=== PATIENT | female | born 1955 | race Caucasian/White ===

== ENCOUNTER 2016-06-19 13:06 | Emergency (ER) | payer OTHER ==
[~2016-06-19 13:06] MED LIST: BUTALBITAL PO; DIFLUCAN; DIFLUCAN PO; FLAGYL250 M1 PO; GABAPENTIN800 MG PO; INDERAL LA PO; KLONOPIN PO; LAMICTAL PO; LEVAQUIN PO; NEURONTIN PO; PREDNISONE10 MG PO; PRIMIDONE250 MG PO; SYMBICORT INH; TOPAMAX PO; VIBRAMYCIN100 M1 PO
== END 2016-06-19 13:53 | disposition home or self-care (01) ==
LOC: CFTX 13:06
DX: S05.01XA Injury of conjunctiva and corneal abrasion without foreign body, right eye, initial encounter (principal); J44.9 Chronic obstructive pulmonary disease, unspecified; F31.9 Bipolar disorder, unspecified; G43.909 Migraine, unspecified, not intractable, without status migrainosus; J45.909 Unspecified asthma, uncomplicated; Z88.8 Allergy status to other drugs, medicaments and biological substances; Z79.899 Other long term (current) drug therapy; Z23 Encounter for immunization; X58.XXXA Exposure to other specified factors, initial encounter; Y92.9 Unspecified place or not applicable
CPT/HCPCS: 90471; 90715; 99283

== ENCOUNTER → 2016-10-18 | Outpatient (CLI) | payer OTHER ==
--- NOTE | ~2016-10-18 | MY29 ---
[facility] A Service of [facility] & [facility] RADIOLOGY TEXT RESULTS PATIENT: MARIO HERNÁNDEZ LOCATION: [facility] : 55 UNIT #: [id number] AGE: [address]: Katelyn Ledesma MD SEX: F ORDER DR: [id number] [facility] [address] [place], [place] [address] [id number] O MR#: [id number] Acc #: [id number] NAME: MARIO HERNÁNDEZ. : 1955 SEX: F STUDY DATE/TIME: 10/18/2016 11:49 UNIT: [facility] ROOM: STUDY DESCRIPTION: MY ARIANA SCREENING W/ CAD BILAT Attending Physician: Katelyn Ledesma M.D. Ordering Physician: Katelyn Ledesma M.D. Primary Care Physician: Katelyn Ledesma M.D. MEDICAL IMAGING REPORT This report is preliminary unless electronic signature is present EXAM Digital screening mammogram, 10/18/2016, [facility]. HISTORY 61-year-old woman positive family history, aunt. Previous left breast biopsy. Annual screen. COMPARISON Mammograms 11/25/2007, 03/17/2014, 06/13/2015. TECHNIQUE Digital imaging of each breast was completed utilizing screening protocol. Biopsy marker was placed upper outer quadrant left breast. Review includes FDA-approved CAD device. FINDINGS Breast parenchyma is moderately dense bilaterally with a stable appearance. I see no developing mass or interval occurring microcalcifications. There is no suspicious architectural distortion. IMPRESSION Stable benign mammogram. Annual screening recommended. Patients over the age of 40 are entered into a reminder system with target due date for the next mammogram. A result letter will also be sent to the patient. BIRADS: 2 Benign finding. Dictated by... Neto Dover M.D. [facility] A Service of [facility] & [facility] RADIOLOGY TEXT RESULTS PATIENT: MARIO HERNÁNDEZ LOCATION: [facility] : 55 UNIT #: [id number] AGE: [address]: Katelyn Ledesma MD SEX: F ORDER DR: THIS IS AN ELECTRONICALLY VERIFIED REPORT Neto Dover M.D. at 10/19/2016 8:12 AM SAVITA/georgiana TD: 10/18/2016 16:09 JOB #: [id number] MEDICAL IMAGING REPORT Page 1 of 1 COPY
== END | disposition home or self-care (01) ==
LOC: CWCC 11:35
DX: Z12.31 Encounter for screening mammogram for malignant neoplasm of breast (principal); Z80.3 Family history of malignant neoplasm of breast
CPT/HCPCS: G0202

== ENCOUNTER → 2016-12-12 | Outpatient (CLI) | payer OTHER ==
--- NOTE | ~2016-12-12 | MR113 ---
[facility] A Service of [facility] & [facility] RADIOLOGY TEXT RESULTS PATIENT: MARIO HERNÁNDEZ LOCATION: [facility] : 55 UNIT #: [id number] AGE: [address]: Javed Cintron MD SEX: F ORDER DR: [id number] [facility] [address] [place], [place] [address] [id number] O MR#: [id number] Acc #: [id number] NAME: AMRIO HERNÁNDEZ : 1955 SEX: F STUDY DATE/TIME: 12/12/2016 16:43 UNIT: [facility] ROOM: STUDY DESCRIPTION: MR Lumbar Wo Contrast Attending Physician: Javed Cintron M.D. Referring Physician: Javed Cintron M.D. Ordering Physician: Javed Cintron M.D. Primary Care Physician: Katelyn Ledesma M.D. MRI CENTER REPORT This report is preliminary unless electronic signature is present. EXAM MRI of the lumbar spine without HISTORY Spinal stenosis, low-back pain for 30 years, worsening for 2 years, having trouble with right leg and right hip numbness. Tingling in upper and lower leg and aching. Patient has had falls in the past. No history of cancer. TECHNIQUE MRI of the lumbar spine performed without contrast using routine 1.5T imaging technique. There is no prior imaging of the lumbar spine. FINDINGS Sagittal alignment is normal. Bone marrow signal intensity is normal allowing for some areas of focal fat or hemangioma formation. Mild intervertebral disc desiccation at L5-S1 to a lesser extent L4-5 and L1-2. The conus medullaris terminates at L1-2 and is normal. At L1-2, there is a mild concentric disc bulge. Mild ligamentum flavum thickening and facet hypertrophy but no canal stenosis or foraminal impingement. At L2-3, there is mild bilateral facet degenerative change with ligamentum flavum thickening. There is no canal stenosis or foraminal impingement. At L3-4, [id number] bilateral facet degenerative change with a minor broad-based posterior disc bulge but no canal stenosis or foraminal impingement. At L4-5, there is moderate facet degenerative change bilaterally with mild ligamentum flavum thickening. There is some mild concentric disc bulge more prominent posteriorly into the bilateral inferior foramina. There is STS. [facility] A Service of [facility] & [facility] RADIOLOGY TEXT RESULTS PATIENT: MARIO HERNÁNDEZ LOCATION: [facility] : 55 UNIT #: [id number] AGE: [address]: Javed Cintron MD SEX: F ORDER DR: mild mass effect on the thecal sac. There is no central canal stenosis. There is mild bilateral inferior foraminal narrowing more prominent to the left with mild mass effect on the bilateral-lateral recesses. L5-S1, there is mild right and jyfjkuco-[id number] left-side facet arthritis. Minor broad-based posterior disc bulge more prominent left paramedian location. No canal stenosis. Only mild left-side foraminal narrowing. Partly seen is a probable cyst in the liver right lower lobe. It measures about 1.6 cm in diameter. Review of the noncontrast CT scan from 06/10/2013 shows a low attenuation lesion in this area not appreciably changed in size and it is, therefore, likely a benign cyst. IMPRESSION 1. Lumbar degenerative changes are detailed above. There is no significant lumbar canal stenosis. Facet degenerative changes most prominent asymmetrically on the left side at L5-S1. There is mild mass effect on the thecal sac at L4-5. See [id number] discussion. Dictated by... Ara Woodward M.D. THIS IS AN ELECTRONICALLY VERIFIED REPORT Ara Woodward M.D. at 12/14/2016 8:31 AM LIZZETTE/deedee TD: 12/13/2016 11:48 JOB #: [id number] MRI CENTER REPORT Page 1 of 1 COPY
== END | disposition home or self-care (01) ==
LOC: CMRI 12-10 16:00
DX: M48.06 Spinal stenosis, lumbar region (principal); M47.896 Other spondylosis, lumbar region; M46.96 Unspecified inflammatory spondylopathy, lumbar region; M46.97 Unspecified inflammatory spondylopathy, lumbosacral region; M47.897 Other spondylosis, lumbosacral region
CPT/HCPCS: 72148